=== PATIENT | female | born 1955 | race Caucasian/White ===

== ENCOUNTER 2019-12-07 07:21 | Outpatient (CLI) | payer OTHER, SELFPAY ==
--- NOTE | ~2019-12-07 | US_ITS ---
US soft tissue chest DATE: 12/07/2019 07:50 INDICATION: Chest wall mass TECHNIQUE: High-resolution ultrasound imaging and color flow imaging targeted to area of clinical com plaint of lump at the left anterior chest/shoulder area COMPARISON: None FINDINGS: There is a parallel circumscribed mildly hyperechoic approximately 7.7 x 17.5 cm mass in th e subcutaneous tissues at the area of clinical complaint. No internal vascularity or shadowing is det ected. This may be a subcutaneous lipoma. If definitive tissue diagnosis is desired, this would be am enable to ultrasound-guided biopsy. IMPRESSION: Parallel circumscribed 7.5 x 17.5 cm mildly hyperechoic mass without internal vascularity at area of clinical complaint of lump at the anterior left chest/shoulder. This may be a lipoma. Thi s is amenable to ultrasound-guided biopsy for tissue diagnosis of clinically desired. Reviewed, dictated and finalized at [facility]. Reviewed, dictated and finalized at location A. IMPRESSION: Parallel circumscribed 7.5 x 17.5 cm mildly hyperechoic mass withou t internal vascularity at area of clinical complaint of lump at the anterior le ft chest/shoulder. This may be a lipoma. This is amenable to ultrasound-guided biopsy for tissue diagnosis of clinically desired.
== END 2019-12-07 07:22 | disposition home or self-care (01) ==
PROVIDERS: PCP Family Medicine; Visit Provider Nurse Practitioner Family
DX: R22.2 Localized swelling, mass and lump, trunk (principal)
CPT/HCPCS: 76604

== ENCOUNTER 2020-10-27 14:10 | Emergency (ER) | payer OTHER, SELFPAY ==
--- NOTE | ~2020-10-27 | CT_ITS ---
EXAMINATION: CT brain wo con INDICATION: Left-sided headache COMPARISON: None TECHNIQUE: Standard unenhanced head CT. The dose-length product (DLP) was 605.33 mGy-cm. The mA was a djusted according to patient size. Iterative reconstruction technique was employed. FINDINGS: There is no intracranial hemorrhage, acute infarction, or abnormal mass lesion. The ventric les are normal. There is no abnormal mass effect or midline shift. The vora-white matter differentiat ion is normal. The basal cisterns are patent. The orbits are normal. The paranasal sinuses, mastoids and calvarium are normal. IMPRESSION: 1. No acute intracranial abnormality. Reviewed, dictated and finalized at location B.
[2020-10-27 14:15] VITALS: BP 139/80; PULSE 87; RESP 12; TEMP 37.1; O2SAT 99
[2020-10-27 15:31] VITALS: BP 139/93; PULSE 75; RESP 16; O2SAT 98
--- NOTE | 2020-10-27 16:00 | ED.HA ---
HPI - Headache General Chief Complaint: Headache Stated Complaint: stabbing pains in skull Time Seen by Provider: 10/27/20 15:37 Source: patient Mode of arrival: ambulatory Limitations: no limitations History of Present Illness HPI Narrative: This is a 65 year old female that presents to the ER for left sided headache present over the last couple of weeks. Reports this has been ongoing since she had shingles. She has intermittent sharp pains on the left side of her head that lasts briefly. Denies any pain currently. Denies fever, vision changes, vomiting, numbness, or weakness. Related Data Home Medications Medication Instructions Recorded Confirmed albuterol sulfate 90 mcg/actuation 1 inhalation INHALATION Q4-6H PRN 11/21/19 12/10/19 breath activated powder inhaler,sensor calcium carbonate 600 mg calcium 600 mg PO DAILY 11/21/19 12/10/19 (1,500 mg) tablet fluticasone 250 mcg-salmeterol 50 1 inhalation INHALATION BID 11/21/19 12/10/19 mcg/dose blistr powdr for inhalation glucosamine HCl 1,500 mg tablet 1,500 mg PO DAILY 11/21/19 12/10/19 lidocaine 5 % topical patch 1 patch TOPICAL DAILY 11/21/19 12/10/19 multivitamin 1 tablet PO DAILY 11/21/19 12/10/19 pyridoxine (vitamin B6) 100 mg 100 mg PO DAILY 11/21/19 12/10/19 tablet turmeric 400 mg capsule mg PO 11/21/19 12/10/19 Allergies Allergy/AdvReac Type Severity Reaction Status Date / Time codeine Allergy Mild CHEST PAIN Verified 12/25/19 13:54 egg Allergy Unknown Unknown Verified 12/25/19 13:54 Review of Systems Review of Systems: Narrative: CONSTITUTIONAL: Denies fever EYES: Denies visual changes GASTROINTESTINAL: Denies vomiting NEUROLOGIC: Reports headache. Denies numbness, or weakness. All systems reviewed & are unremarkable except as noted in HPI and below PMFSH Past Medical History Medical History (Updated 10/27/20 @ 18:20 by Desirae Bermeo PA-C) Asthma Surgical History Surgical History History of appendectomy History of arthroscopic knee surgery History of hysterectomy Hx of myomectomy Family History Family History Father Hypertension COPD (chronic obstructive pulmonary disease) Mother COPD (chronic obstructive pulmonary disease) CHF (congestive heart failure) Cancer Social History Social History Smoking status: Never smoker Alcohol intake: current Substance use: never Gender identity (if verbalized by the patient): Female Exam Narrative: Exam Narrative: GENERAL: Well-appearing, well-nourished, and in no acute distress. HEAD: Normocephalic, atraumatic. EYES: PERRLA and EOMI. ENT: Nares clear, no rhinorrhea or epistaxis. Mucous membranes moist. Oropharynx without tonsillar hypertrophy exudate or other lesions. Bilateral TMs pearly vora non-bulging NECK: Supple. No adenopathy or masses. CHEST: Clear to auscultation. No respiratory distress. No wheezes rales or rhonchi HEART: Regular rate and rhythm. No murmur heard. Normal peripheral pulses. EXTREMITIES: Normal range of motion. No edema. SKIN: Warm, dry, no rash. NEURO: No focal deficits. Alert and oriented x3. Cranial nerves II through XII grossly intact PSYCH: Normal mood and affect Course Vital Signs Vital signs: Vital Signs Temperature 98.7 F 10/27/20 14:15 Pulse Rate 87 10/27/20 14:15 Respiratory Rate 12 10/27/20 14:15 Blood Pressure 139/80 10/27/20 14:15 Pulse Oximetry 99 10/27/20 14:15 Temperature 98.7 F 10/27/20 14:15 Pulse Rate 75 10/27/20 15:31 Respiratory Rate 16 10/27/20 15:31 Blood Pressure 139/93 H 10/27/20 15:31 Pulse Oximetry 98 10/27/20 15:31 MDM - Headache MDM Narrative Medical decision making narrative: Patient presents the emergency department for sharp pains on the left side of her head that have been ongoing since rec
[2020-10-27 16:19] LABS: Basophils Absolute Auto 0.1 K/mm3 (0.0-0.1); Basophils Percent Auto 1.1 % (0.2-1.2); Eosinophils Absolute Auto 0.5 K/mm3 (0-0.3); Eosinophils Percent Auto 5.7 % (0-4.4); Hematocrit 42.1 % (37.0-47.0); Hemoglobin 13.9 g/dL (12.0-15.0); Immature Granulocyte Absolute 0.03 K/mm3 (0.00-0.031); Immature Granulocyte Percent A 0.3 % (0-0.5); Lymphocytes Absolute Auto 2.52 K/mm3 (0.9-3.2); Lymphocytes Percent Auto 27.9 % (18.3-44.2); Mean Corpuscular Hemoglobin 29.6 pg (26-34); Mean Corpuscular Volume 89.8 fl (80-100); Mean Platelet Volume 10.3 fl (7.4-10.4); Monocytes Absolute Auto 0.5 K/mm3 (0.1-0.6); Monocytes Percent Auto 5.1 % (2.6-8.5); Neutrophils Absolute Auto 5.4 K/mm3 (1.3-6.7); Neutrophils Percent Auto 59.9 % (45.5-73.1); Platelet Count Result 227 k/mm3 (150-375); Red Blood Count 4.69 M/mm3 (4.2-5.4); Red Cell Distribution Width 13.3 % (11.5-14.5)
[2020-10-27 16:30] LABS: Anion Gap 10 mmol/L (8-16); Blood Urea Nitrogen 22 mg/dL (7-17); Calcium 10.3 mg/dL (8.4-10.2); Carbon Dioxide 23 mmol/L (22-30); Chloride 109 mmol/L (98-107); Estimated CRCL calculation 68 ml/min; Estimated Glomerular Filt Rate > 60; Glucose 88 mg/dL (65-105); Potassium 4.4 mmol/L (3.4-5.0); Sodium 142 mmol/L (137-145)
[2020-10-27 17:16] LABS: Erythrocyte Sedimentation Rate 23 mm/hr (0-20)
[2020-10-27 19:08] VITALS: BP 126/86; PULSE 80; RESP 16; O2SAT 97
== END 2020-10-27 19:09 | disposition home or self-care (01) ==
PROVIDERS: Physician Assistant; Emergency Provider Emergency Medicine; PCP Family Medicine
DX: B02.29 Other postherpetic nervous system involvement (principal); J45.909 Unspecified asthma, uncomplicated
CPT/HCPCS: 36415; 70450; 80048; 85025; 85652; 99284

== ENCOUNTER 2020-11-25 08:23 | Outpatient (CLI) | payer OTHER, SELFPAY ==
--- NOTE | ~2020-11-25 | XR_ITS ---
EXAMINATION: XR chest 2V 11/25/2020 08:45 INDICATION: Left lateral chest pain. Shingles. History of asthma. PROCEDURE: 2 view chest COMPARISON: No prior studies for comparison. FINDINGS: Bibasilar atelectasis. No focal pneumonia, edema, pleural effusion or pneumothorax. The car diomediastinal silhouette is within normal limits. There are no pleural effusions. There is no pneu mothorax suspected. IMPRESSION: 1: Bibasilar atelectasis. Reviewed, dictated and finalized at location A. IMPRESSION: 1: Bibasilar atelectasis.
[2020-11-25 08:44] LABS: Basophils Absolute Auto 0.1 K/mm3 (0.0-0.1); Basophils Percent Auto 1.2 % (0.2-1.2); Eosinophils Absolute Auto 0.3 K/mm3 (0-0.3); Eosinophils Percent Auto 3.8 % (0-4.4); Hematocrit 41.8 % (37.0-47.0); Hemoglobin 13.9 g/dL (12.0-15.0); Immature Granulocyte Absolute 0.03 K/mm3 (0.00-0.031); Immature Granulocyte Percent A 0.4 % (0-0.5); Lymphocytes Absolute Auto 2.51 K/mm3 (0.9-3.2); Lymphocytes Percent Auto 33.1 % (18.3-44.2); Mean Corpuscular HGB Conc 33.3 g/dl (32-36); Mean Corpuscular Volume 90.3 fl (80-100); Monocytes Absolute Auto 0.5 K/mm3 (0.1-0.6); Monocytes Percent Auto 6.1 % (2.6-8.5); Neutrophils Absolute Auto 4.2 K/mm3 (1.3-6.7); Neutrophils Percent Auto 55.4 % (45.5-73.1); Platelet Count Result 244 k/mm3 (150-375); Red Blood Count 4.63 M/mm3 (4.2-5.4); Red Cell Distribution Width 13.2 % (11.5-14.5); White Blood Count 7.6 K/mm3 (4.5-10.0)
[2020-11-25 08:54] LABS: Alanine Aminotransferase 30 U/L (4-35); Albumin Level 4.5 g/dL (3.5-5.1); Alkaline Phosphatase 98 U/L (38-126); Anion Gap 8 mmol/L (8-16); Aspartate Amino Transferase 26 U/L (14-36); Bilirubin,Total 0.5 mg/dL (0.2-1.3); Blood Urea Nitrogen 22 mg/dL (7-17); Calcium 9.9 mg/dL (8.4-10.2); Carbon Dioxide 25 mmol/L (22-30); Chloride 106 mmol/L (98-107); Estimated Glomerular Filt Rate 56; Glucose 112 mg/dL (65-110); Potassium 4.5 mmol/L (3.4-5.0); Sodium 139 mmol/L (137-145)
[2020-11-25 08:57] LABS: D Dimer 0.33 ug/mL (<0.48)
[2020-11-25 09:05] LABS: Troponin I < 0.012 ng/mL (0.000-0.034)
== END 2020-11-25 08:24 | disposition home or self-care (01) ==
LOC: ANHLAB 08:27
PROVIDERS: PCP Family Medicine; Visit Provider Physician Assistant
DX: R07.9 Chest pain, unspecified (principal)
CPT/HCPCS: 36415; 71046; 80053; 84484; 85025; 85380

== ENCOUNTER 2021-12-08 10:43 | Outpatient (CLI) | payer MEDICARE, MEDICAID, SELFPAY ==
--- NOTE | ~2021-12-08 | MMUS_ITS ---
EXAMINATION: MM diagnostic blaise BI w jarett, US breast LT limited HISTORY: Palpable lump in the upper outer quadrant of the left breast TECHNIQUE: Craniocaudal, mediolateral, and mediolateral oblique 3-D tomosynthesis images of the kianna ts were performed and synthetic 2-D images were generated. CAD analysis was submitted and interpreted . High resolution limited left breast ultrasound was performed. COMPARISON: 06/18/2021, 05/15/2021, 05/14/2020 BREAST PARENCHYMAL COMPOSITION: The breasts are heterogeneously dense, which may obscure small masses . FINDINGS: MAMMOGRAPHIC FINDINGS: Right breast: There is unchanged mild architectural distortion in the posterior third of the breast. Also seen several obscured right breast masses which have been previously evaluated. Left breast: There is a 1.8 cm irregular high density mass with indistinct margins in the posterior t hird of the outer breast at the 3:00 location 9 cm from the nipple corresponding to the palpable abno rmality of concern. ULTRASOUND: There is a 1.6 x 1.3 cm irregular, not parallel, hypoechoic mass with microlobulated margin, mild pos terior acoustic enhancement, and internal vascularity at the 3:00 location 7 cm from the nipple corre sponding to the palpable abnormality of concern. IMPRESSION: 1. Suspicious left breast mass. 2. Ultrasound-guided biopsy is recommended. BI-RADS category 5, highly suggestive of malignancy. Reviewed, dictated and finalized at location A. IMPRESSION: 1. Suspicious left breast mass. 2. Ultrasound-guided biopsy is recommended. BI-RADS category 5, highly suggestive of malignancy.
== END 2021-12-08 10:44 | disposition home or self-care (01) ==
PROVIDERS: PCP Family Medicine; Visit Provider Obstetrics & Gynecology
DX: R92.8 Other abnormal and inconclusive findings on diagnostic imaging of breast (principal); N63.20 Unspecified lump in the left breast, unspecified quadrant
CPT/HCPCS: 76642; 77062; 77066; G0279

== ENCOUNTER 2021-12-22 12:03 | Outpatient (NON) | payer MEDICARE, MEDICAID, SELFPAY | END 2021-12-22 12:04 | disposition home or self-care (01) | LOC: ANHLAB 12:06 | PROVIDERS: PCP Family Medicine; Visit Provider Surgery | DX: N63.20 Unspecified lump in the left breast, unspecified quadrant (principal) | CPT/HCPCS: 88305; 88342 ==

== ENCOUNTER 2022-01-08 10:21 | Outpatient (CLI) | payer MEDICARE, MEDICAID, SELFPAY ==
--- NOTE | ~2022-01-08 | MMUS_ITS ---
EXAMINATION: US GUIDED NEEDLE BIOPSY DATE: 01/08/2022 12:23 CDT INDICATION: 1.6 x 1.3 cm irregular hypoechoic mass, 3:00 7 cm from nipple TECHNIQUE AND FINDINGS: The risks and potential benefits of the procedure were discussed with the patient, and written inform ed consent was obtained. Timeout procedure was performed. After sterile preparation of the left breas t, 1% lidocaine was utilized for local anesthesia. A 14G spring-loaded biopsy gun needle was advanced to the edge of the region of interest from an infe rolateral superior/inferior/medial/lateral/superolateral/superomedial/inferolateral/inferomedial appr [facility] utilizing sonographic guidance. A total of 7 tissue core samples were obtained through the lesi on. An Inrad tissue marker clip was then placed at the biopsy site. Hemostasis was achieved. A steri le bandage was applied. The patient tolerated procedure well and there was no evidence of immediate complication. The patien t was given verbal instructions prior to departing from the department. A two view mammogram was perf ormed to document tissue marker clip placement. The tissue samples were submitted to surgical patholo gy for histologic analysis. IMPRESSION: 1. Successful ultrasound guided biopsy of left 3:00 breast mass with biopsy marker placement. Please refer to pathology report for histologic analysis. Reviewed, dictated and finalized at [facility]. Reviewed, dictated and finalized at location A. IMPRESSION: 1. Successful ultrasound guided biopsy of left 3:00 breast mass with biopsy ma rker placement. Please refer to pathology report for histologic analysis.
== END 2022-01-08 10:22 | disposition home or self-care (01) ==
PROVIDERS: Visit Provider Surgery
DX: R92.8 Other abnormal and inconclusive findings on diagnostic imaging of breast (principal); D05.12 Intraductal carcinoma in situ of left breast
CPT/HCPCS: 19083; 88305; 88342; 88360; A4648

== ENCOUNTER 2022-05-17 01:04 | Emergency (ER) | payer MEDICARE, MEDICAID, SELFPAY ==
[2022-05-17] VITALS (26 sets, daily range): BP systolic 110–145; BP diastolic 72–97; PULSE 83–110; RESP 13–29; TEMP 36.4; O2SAT 90–99
--- NOTE | ~2022-05-17 | CT_ITS ---
EXAMINATION: CTA chest PE protocol DATE: 05/17/2022 03:10 INDICATION: Shortness of breath. TECHNIQUE: Computed tomography (CT) pulmonary angiogram of the chest was performed with 100 mL Omnipa que-350 intravenous contrast. Additional 3D reconstructions utilizing coronal maximum intensity proje ction (MIP) were performed. The dose-length product was 528.36 mGy-cm. COMPARISON: None FINDINGS: Excellent contrast opacification of the pulmonary arteries. There is mild streak artifact from dense contrast in the superior vena cava and right atrium. No significant motion artifact yielding diagnost ic for the study which demonstrates no pulmonary embolism. Subtle opacities at the lateral basilar ri ght lower lobe suspicious for pneumonia with differential including atelectasis. More typical discoid atelectasis at the left lung base. No pulmonary edema, pleural effusion or pneumothorax. Small trach eal diverticulum. Heart size is normal. No pericardial effusion. Thoracic aorta is normal in caliber with no dissection. No pathologically enlarged thoracic lymphadenopathy. Right internal jugular centr al venous port catheter with distal tip at the midsuperior vena cava. Multiple well-defined low-atten uation hepatic cysts the largest measuring 4.5 cm in maximal ejection diameter situated between the c audate lobe and the confluence of the hepatic veins. More subtle approximately 1.5 cm lesion in segme nt 3 of the liver with less well-defined margins and of greater than simple fluid attenuation. 3.4 cm rim calcified gallstone at the fundus of the otherwise normal gallbladder. Visualized upper abdomen is otherwise unremarkable. Mild thoracic spondylosis. Small bone island at T1. IMPRESSION: 1. No pulmonary embolism. 2. Mild spondylosis at the lateral basilar right lower lobe which is suspicious for pneumonia. 3. Multiple liver lesions, the majority consistent with hepatic cysts but with an indeterminate less well-defined and slightly higher attenuation 1.5 cm lesion in segment 3 of the liver. Differential wo uld include hemangioma, focal nodular hyperplasia, focal fat or metastatic disease given the known hi story of breast cancer. Recommend further evaluation with pre and postcontrast MRI. Reviewed, dictated and finalized at location A. [employer] IMPRESSION: 1. No pulmonary embolism. 2. Mild spondylosis at the lateral basilar right lower lobe which is suspicious for pneumonia. 3. Multiple liver lesions, the majority consistent with hepatic cysts but with an indeterminate less well-defined and slightly higher attenuation 1.5 cm lesio n in segment 3 of the liver. Differential would include hemangioma, focal nodul ar hyperplasia, focal fat or metastatic disease given the known history of hui st cancer. Recommend further evaluation with pre and postcontrast MRI.
--- NOTE | 2022-05-17 01:40 | ED.GENADULT ---
HPI - General Adult General Chief complaint: Asthma Stated complaint: Asthma Time Seen by Provider: 05/17/22 01:11 History of Present Illness HPI narrative: 66-year-old female with history of asthma presented the emergency department for evaluation of worsening shortness of breath with associated chest tightness and some wheeze. Patient states earlier in the day she was cleaning out the back aircraft cabin cleaner and did inhale some vacuum dust. Patient did try breathing treatment at home with no significant improvement. Patient is currently following up with [facility] for cancer treatment. Patient completed her last chemotherapy on April 13. Patient is scheduled for a bilateral mastectomy on May 26. Related Data Home Medications Medication Instructions Recorded Confirmed albuterol sulfate 90 mcg/actuation 1 inhalation inhalation Q4-6H PRN 11/21/19 12/22/21 breath activated powder inhaler,sensor calcium carbonate 600 mg calcium 600 mg PO DAILY 11/21/19 12/22/21 (1,500 mg) tablet (Calcium) fluticasone 250 mcg-salmeterol 50 1 inhalation inhalation BID 11/21/19 12/22/21 mcg/dose blistr powdr for inhalation (Advair Diskus) glucosamine HCl 1,500 mg tablet 1,500 mg PO DAILY 11/21/19 12/22/21 lidocaine 5 % topical patch 1 patch topical DAILY 11/21/19 12/22/21 multivitamin 1 tablet PO DAILY 11/21/19 12/22/21 pyridoxine (vitamin B6) 100 mg 100 mg PO DAILY 11/21/19 12/22/21 tablet turmeric 400 mg capsule mg PO 11/21/19 12/22/21 Allergies Allergy/AdvReac Type Severity Reaction Status Date / Time codeine Allergy Mild CHEST PAIN Verified 05/17/22 01:10 egg Allergy Unknown Unknown Verified 05/17/22 01:10 latex Allergy Unknown Verified 05/17/22 01:10 Review of Systems Review of Systems: CONSTITUTIONAL: Denies fever, chills, or sweats. EYES: Denies visual changes, redness, or discharge. ENT: Denies rhinorrhea, congestion, sore throat, or otalgia. CARDIOVASCULAR: Denies chest pain, palpitations, or edema. RESPIRATORY: Shortness of breath and chest tightness GASTROINTESTINAL: Denies abdominal pain, nausea, vomiting, or diarrhea. GENITOURINARY: Denies dysuria or hematuria. SKIN: Denies rash or itching. MUSCULOSKELETAL: Denies back pain, joint pain, or myalgia. NEUROLOGIC: Denies headache, numbness, or weakness. [facility] Past Medical History Medical History (Updated 05/17/22 @ 04:08 by Dennys Graff MD) Asthma Surgical History Surgical History History of appendectomy History of arthroscopic knee surgery History of hysterectomy Hx of myomectomy Family History Family History Father Hypertension COPD (chronic obstructive pulmonary disease) Mother COPD (chronic obstructive pulmonary disease) CHF (congestive heart failure) Cancer Social History Social History Smoking status: Never smoker Alcohol intake: current Alcohol use details: socially Substance use: never Living arrangements: alone Occupation/Education: retired Gender identity (if verbalized by the patient): Female Exam Narrative: APPEARANCE: Well appearing, no pain, no distress, well-nourished. HEAD: normocephalic, atraumatic. EYES: PERRLA/EOMI, conjunctivae clear. NOSE: Normal no drainage NECK: Supple. No adenopathy, no masses. RESPIRATORY: Expiratory wheeze CARDIOVASCULAR: Regular rate and rhythm without murmurs rubs or gallops. ABDOMINAL: Soft, nontender, nondistended, normal bowel sounds MUSCULOSKELETAL: Moves all extremities. Strength/ROM intact, No edema, No calf tenderness. NEURO: Alert. Cranial nerves II through XII intact. Grossly intact SKIN: Warm, dry. Normal Color Course Course Emergency Course: Patient did feel significantly improved after the breathing treatment. Wheeze was significantly improved. CT scan was ordered to rule out pulmonary emboli
[2022-05-17 01:44] LABS: Basophils Absolute Auto 0.1 K/mm3 (0.0-0.1); Basophils Percent Auto 1.4 % (0.2-1.2); Eosinophils Absolute Auto 1.1 K/mm3 (0-0.3); Eosinophils Percent Auto 11.5 % (0-4.4); Hematocrit 36.7 % (37.0-47.0); Hemoglobin 12.1 g/dL (12.0-15.0); Immature Granulocyte Absolute 0.02 K/mm3 (0.00-0.031); Immature Granulocyte Percent A 0.2 % (0-0.5); Lymphocytes Absolute Auto 2.04 K/mm3 (0.9-3.2); Lymphocytes Percent Auto 22.3 % (18.3-44.2); Mean Corpuscular Hemoglobin 31.4 pg (26-34); Mean Corpuscular Volume 95.3 fl (80-100); Mean Platelet Volume 9.2 fl (7.4-10.4); Monocytes Absolute Auto 0.6 K/mm3 (0.1-0.6); Monocytes Percent Auto 6.9 % (2.6-8.5); Neutrophils Absolute Auto 5.3 K/mm3 (1.3-6.7); Neutrophils Percent Auto 57.7 % (45.5-73.1); Platelet Count Result 260 k/mm3 (150-375); Red Blood Count 3.85 M/mm3 (4.2-5.4); Red Cell Distribution Width 14.7 % (11.5-14.5); White Blood Count 9.1 K/mm3 (4.5-10.0)
[2022-05-17] MEDS: ALBUTEROL SULFATE NEB 2.5 MG/3 ML INH 5 MG INHALATION (01:52)
[2022-05-17 01:56] LABS: Alanine Aminotransferase 22 U/L (6-35); Albumin Level 4.1 g/dL (3.5-5.1); Alkaline Phosphatase 116 U/L (38-126); Anion Gap 7 mmol/L (8-16); Aspartate Amino Transferase 22 U/L (14-36); Bilirubin,Total 0.2 mg/dL (0.2-1.3); Blood Urea Nitrogen 15 mg/dL (7-17); Calcium 9.4 mg/dL (8.4-10.2); Carbon Dioxide 24 mmol/L (22-30); Chloride 108 mmol/L (98-107); Estimated CRCL calculation 76 ml/min; Estimated Glomerular Filt Rate > 60; Glucose 128 mg/dL (65-110); Potassium 4.2 mmol/L (3.4-5.0); Sodium 139 mmol/L (137-145)
[2022-05-17 02:19] LABS: Influenza A QL RT-PCR Negative (Negative); Influenza B QL RT-PCR Negative (Negative); RSV RNA, RT-PCR Negative (Negative); SARS-CoV-2 RNA PCR Negative
[2022-05-17] MEDS: predniSONE 40 MG, predniSONE 10 MG 50 MG PO (04:07)
== END 2022-05-17 04:17 | disposition home or self-care (01) ==
PROVIDERS: Emergency Provider Emergency Medicine
DX: J45.909 Unspecified asthma, uncomplicated (principal); Z20.822 Contact with and (suspected) exposure to COVID-19; Z90.710 Acquired absence of both cervix and uterus
CPT/HCPCS: 36415; 71275; 80053; 85025; 87637; 94640; 99284; J7512; Q9967

== ENCOUNTER 2023-06-03 08:21 | Outpatient (CLI) | payer MEDICARE, MEDICAID, SELFPAY ==
--- NOTE | ~2023-06-03 | DEXA_ITS ---
Bone Density Report Name: CURLY GOODWIN Age: 68 Sex: Female Ethnicity: White Date of : 1955 Indication: postmenopausal; screening for osteoporosis; inflammatory bowel disease; cancer; asthma or emphysema; hysterectomy; Referring Provider: LAURO DOW Study: Bone densitometry was performed. Exam Date: June 03, 2023 Accession number: [id number] Bone Density: Region BMD T-score Z-score Classification AP Spine(L1-L4) 0.872 -1.6 0.3 Osteopenia Femoral Neck (Left) 0.687 -1.5 0.2 Osteopenia Total Hip (Left) 0.840 -0.8 0.5 Normal Femoral Neck (Right) 0.705 -1.3 0.3 Osteopenia Total Hip (Right) 0.819 -1.0 0.3 Normal Total Hip Mean 0.830 -0.9 0.4 Normal World Health Organization criteria for BMD impression classify patients as: Normal (T-score at or above -1.0), Osteopenia (T-score between -1.0 and -2.5), or Osteoporosis (T-score at or below -2.5). 10-year Fracture Risk(1): Major Osteoporotic Fracture 8.8% Hip Fracture 0.9% Reported Risk Factors: [place] (), Neck BMD=0.687, BMI=31.0 (1) FRAX(R) Version 3.08. Fracture probability calculated for an untreated patient. Fracture probability may be lower if the patient has received treatment. Clinical Information Provided by Patient: Has used the following medications: Vitamin D, Calcium Has the following medical conditions: Asthma or Emphysema, Cancer, Inflammatory bowel diseases, Hysterectomy Patient maximum height was 66.5 Menopause Age: 39 No regular weight bearing exercise Drinks caffeinated beverages Onset of menses at age 15 Number of children 0 Impression: The patient has low bone mass, based on the Total Spine T-score. The patient has an estimated ten-year risk of hip fracture of 0.9% and an estimated ten-year risk of major fracture of 8.8%, based on the WHO FRAX algorithm. Discussion: BONE DENSITY IS LOW AT ONE OR MORE SKELETAL SITES. This patient's lowest T-score is low at one or more skeletal sites. It meets the World Health Organization's (WHO) criteria for ?low bone mass? (T-score between -1.0 and -2.5). The patient's 10-year risk of fracture as calculated by FRAX is less than the threshold where pharmacological therapy is recommended by the National Osteoporosis Foundation (NOF). However, all treatment decisions require clinical judgment and consideration of individual patient factors, including patient preferences, comorbidities, previous drug use, risk factors not captured in the FRAX model (e.g., frailty, falls, vitamin D deficiency, increased bone turnover, interval significant decline in bone density) and possible under or overestimation of fracture risk by FRAX. The patient should follow a healthful lifestyle (good nutrition with adequate calcium and vitamin D, and appropriate weight-bearing
== END 2023-06-03 08:22 | disposition home or self-care (01) ==
LOC: ANHIMG 08:23
PROVIDERS: Visit Provider Obstetrics & Gynecology
DX: Z13.820 Encounter for screening for osteoporosis (principal); M85.88 Other specified disorders of bone density and structure, other site; M85.852 Other specified disorders of bone density and structure, left thigh; M85.851 Other specified disorders of bone density and structure, right thigh
CPT/HCPCS: 77080

== ENCOUNTER 2024-01-10 10:24 | Emergency (ER) | payer MEDICARE, SELFPAY ==
--- NOTE | ~2024-01-10 | CT_ITS ---
EXAMINATION: CT knee RT wo con DATE: 01/10/2024 13:00 INDICATION: Right knee pain and fracture post fall TECHNIQUE: High resolution computed tomography (CT) of the knee was performed without intravenous con trast. Additional sagittal and coronal reconstructions were performed. Automated exposure control and iterative reconstruction technique were employed. The dose-length product was 636.56 mGy-cm. COMPARISON: Radiographs dated 01/10/2024 FINDINGS: Again seen is a minimally displaced comminuted intra-articular fracture which involves a majority of the articular surface of the medial tibial plateau. There is up to 2 mm fracture gap and 1 mm incongr uity along the articular surface. There is an associated small to moderate-sized layering lipohemarth rosis. There is a second mildly comminuted nondisplaced extra-articular fracture at the proximal head of the right fibula. No other fractures identified. Joint spaces appear normal on nonweightbearing imaging. 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 There are tiny marginal osteophytes along the patella. IMPRESSION: 1. Minimally displaced comminuted intra-articular fracture of the right medial tibial plateau with sm all to moderate-sized lipohemarthrosis.. 2. Nondisplaced mildly comminuted extra articular fracture of the proximal head of the right fibula. Reviewed, dictated and finalized at location B. IMPRESSION: 1. Minimally displaced comminuted intra-articular fracture of the right medial tibial plateau with small to moderate-sized lipohemarthrosis.. 2. Nondisplaced mildly comminuted extra articular fracture of the proximal head of the right fibula.
--- NOTE | ~2024-01-10 | XR_ITS ---
EXAMINATION: XR knee RT min 4V DATE: 01/10/2024 10:55 INDICATION: Right knee injury and pain. TECHNIQUE: 4 views of right knee were obtained. COMPARISON: None. FINDINGS: There is a split fracture of medial tibial plateau with up to 7 mm depression of the articu lar surface. There is a nondisplaced fracture of fibular head. There is mild tricompartmental osteoar thritis of the knee. There is a small lipohemarthrosis. IMPRESSION: 1. Medial tibial plateau fracture. 2. Nondisplaced fracture of fibular head. Reviewed, dictated and finalized at location A.
[2024-01-10 10:30] VITALS: BP 130/69; PULSE 83; RESP 20; TEMP 36.4; O2SAT 99
[2024-01-10] MEDS: ONDANSETRON INJ 4 MG/2 ML VIAL IV PUSH ×2 (12:33→14:53)
[2024-01-10] MEDS: MORPHINE SULFATE (*CRX) 4 MG/ML INJ IV PUSH (12:33)
[2024-01-10 13:17] VITALS: BP 129/58; PULSE 79; RESP 17; O2SAT 95
[2024-01-10] MEDS: HYDROmorphone HCL INJ (*CRX) 1 MG/ML SYR IV PUSH (13:17)
--- NOTE | 2024-01-10 14:32 | ED.GENADULT ---
HPI - General Adult General Chief complaint: Fall Stated complaint: fall Time Seen by Provider: 01/10/24 12:14 History of Present Illness HPI narrative: Patient is a 68-year-old female who presents emergency department with chief complaint of right knee pain. Patient reports that she had a ground level fall this morning she tripped over a non even spot on some pavement. The patient reports that she has pain with range of motion reports that she had no head injury denies loss of consciousness denies being on blood thinners. Related Data Home Medications Medication Instructions Recorded Confirmed albuterol sulfate 90 mcg/actuation 1 inhalation inhalation Q4-6H PRN 11/21/19 12/22/21 breath activated powder inhaler,sensor calcium carbonate (Calcium 600) 600 mg PO DAILY 11/21/19 12/22/21 fluticasone 250 mcg-salmeterol 50 1 inhalation inhalation BID 11/21/19 12/22/21 mcg/dose blistr powdr for inhalation (Advair Diskus) glucosamine HCl 1,500 mg tablet 1,500 mg PO DAILY 11/21/19 12/22/21 lidocaine 5 % topical patch 1 patch topical DAILY 11/21/19 12/22/21 multivitamin 1 tablet PO DAILY 11/21/19 12/22/21 pyridoxine (vitamin B6) 100 mg 100 mg PO DAILY 11/21/19 12/22/21 tablet turmeric 400 mg capsule mg PO 11/21/19 12/22/21 Allergies Allergy/AdvReac Type Severity Reaction Status Date / Time codeine Allergy Mild CHEST PAIN Verified 01/10/24 12:05 egg Allergy Unknown Unknown Verified 01/10/24 12:05 latex Allergy Unknown Verified 01/10/24 12:05 Review of Systems Review of Systems: A 10 system review of systems was completed on the patient and is negative except for what is stated in the HPI. Nursing and ancillary documentation was reviewed. [facility] Past Medical History Medical History (Updated 01/10/24 @ 14:37 by Cody Gaspar MD) Asthma Surgical History Surgical History History of appendectomy History of arthroscopic knee surgery History of hysterectomy Hx of myomectomy Family History Family History Father Hypertension COPD (chronic obstructive pulmonary disease) Mother COPD (chronic obstructive pulmonary disease) CHF (congestive heart failure) Cancer Social History Social History Smoking status: Never smoker Alcohol intake: current Alcohol use details: socially Substance use: never Living arrangements: alone Occupation/Education: retired Gender identity (if verbalized by the patient): Female Exam Narrative: GENERAL: Well-appearing, well-nourished, and in no acute distress. HEAD: Normocephalic, atraumatic. EYES: PERRLA and EOMI. ENT: Nares clear, no rhinorrhea or epistaxis. Mucous membranes moist. NECK: Supple. CHEST: Clear to auscultation. No respiratory distress. HEART: Regular rate and rhythm. No murmur heard. Normal peripheral pulses. ABDOMEN: Soft, nontender, nondistended, normal active bowel sounds. EXTREMITIES: Normal range of motion tenderness to palpation in the right knee no laceration no bleeding. No edema. SKIN: Warm, dry, no rash. NEURO: No focal deficits. Alert and oriented x3. PSYCH: Normal mood and affect. Course Vital Signs Vital signs: Vital Signs Temperature 36.4 C L 01/10/24 10:30 Pulse Rate 83 01/10/24 10:30 Respiratory Rate 20 01/10/24 10:30 Blood Pressure 130/69 01/10/24 10:30 Pulse Oximetry 99 01/10/24 10:30 Oxygen Delivery Room Air 01/10/24 10:30 Temperature 36.4 C L 01/10/24 10:30 Pulse Rate 79 01/10/24 13:17 Respiratory Rate 17 01/10/24 13:17 Blood Pressure 129/58 L 01/10/24 13:17 Pulse Oximetry 95 01/10/24 13:17 Oxygen Delivery Room Air 01/10/24 10:30 Medical Decision Making MDM Narrative Medical decision making narrative: Differential diagnosis includes tibia plateau fracture,
[2024-01-10] MEDS: PROCHLORPERAZINE EDISYLATE 10 MG/2 ML VIAL IV PUSH (15:27)
== END 2024-01-10 16:30 | disposition home or self-care (01) ==
PROVIDERS: Emergency Provider Emergency Medicine
DX: S82.141A Displaced bicondylar fracture of right tibia, initial encounter for closed fracture (principal); S82.831A Other fracture of upper and lower end of right fibula, initial encounter for closed fracture; J45.909 Unspecified asthma, uncomplicated; Z90.710 Acquired absence of both cervix and uterus; M17.11 Unilateral primary osteoarthritis, right knee; W01.0XXA Fall on same level from slipping, tripping and stumbling without subsequent striking against object, initial encounter
CPT/HCPCS: 73564; 73700; 96374; 96375; 96376; 99284; J0780; J1170; J2270; J2405

== ENCOUNTER 2024-05-02 08:16 | Emergency (ER) | payer MEDICARE, SELFPAY ==
[2024-05-02 08:22] VITALS: BP 149/96; PULSE 96; RESP 16; TEMP 36.4; O2SAT 97
--- NOTE | 2024-05-02 08:27 | PC.NURSE ---
Patient came to the desk and states she is going to go to [facility] due to wait times. patient advised to come back to ED if symptoms dont resolve or get worse
--- OUTSIDE RECORDS SUMMARY | 2024-05-09 03:26 | XMS_ITS | Continuity of Care Document ---
Author Organization [facility] Main Address [address] [place] [address] Insurance Providers Payer Plan Claims Address Claims Phone Policy Number Group Number Relation Employer Guarantor Name Guarantor Guarantor Address Guarantor Phone [facility] [id number] Self Mabel Michel 1955 [facility][note 3] [place] [id number] [facility] Sup [id number] Self Mabel Michel 1955 [facility][note 3] [place] [address] [address] [address], [place] [address] tel:[phone] [id number] Quoc Michel 1955 [facility][note 3] [place] [address] Problems Condition ICD9 code ICD10 code SNOMED code Start Date End Date S tatus Encounter for general adult medical examination without abnormal findings Z00.00 Working Malignant neoplasm of overlapping sites of left female breast C50.812 Workin g Estrogen receptor negative status [ER-] Z17.1 Wor meng Pain in left shoulder M25.512 Wo rking Other chronic pain G89.29 Worki ng Personal history of irradiation Z92.3 Working Nipple discharge N64.52 Working Encounter for screening for osteoporosis Z13.820 Working Mild intermittent asthma with (acute) exacerbation J45.21 Working Personal history of malignant neoplasm of breast Z85.3 Working Personal history of antineoplastic chemotherapy Z92.21 Working Encounter for other preprocedural examination Z01.818 Working 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 Working Neoplasm of uncertain behavior of skin D48.5 Working Pain in left hand M79.642 Workin g Unilateral primary osteoarthritis of first carpometacarpal joint, left hand M18.12 Working Displaced bicondylar fracture of unspecified tibia, initial encounter for closed fracture S82.143A Worki ng Other fracture of upper and lower end of unspecified fibula, initial encounter for closed fracture S82.839A Working Displaced bicondylar fracture of right tibia, initial encounter for closed fracture S82.141A Working Unspecified injury of right lower leg, initial encounter S89.91XA Working Results No Results Allergies, adverse reactions, alerts No known allergies and adverse reactions Medications No administered medications reported Vital Signs No vital signs reported Social History No smoking Hx information available
== END 2024-05-02 08:27 | disposition left against medical advice (07) ==
DX: M54.50 Low back pain, unspecified (principal)
CPT/HCPCS: 99199